=== PATIENT | male | born 1995 | race Hispanic/Latino ===

== ENCOUNTER 2018-01-06 07:08 | Day surgery (SDC) | payer BC ==
[2018-01-06] MEDS ORDERED: NACL 0.9% 500 ML 500 ML IV SCH (08:00)
[2018-01-06] MEDS ORDERED: ADRENALIN ONE (08:11)
[2018-01-06] MEDS ORDERED: ATROPINE 0.1% (CARDIAC) ONE (08:11)
[2018-01-06] MEDS: NITROSTAT SL ONE ×2 (08:54→09:00)
--- NOTE | 2018-01-06 09:28 | Short Stay Summary ---
Short Stay Documentation Date of service: 01/06/18 - History H&P: obtained from office - Allergies and Medications Current Medications: Allergies No Known Allergies Allergy (Verified 01/06/18 07:54) Home Medications Medication Instructions Recorded Confirmed Last Taken Type Triamter/Hctz 37.5-25 mg 25 - 37.5 mg PO DAILY 01/06/18 01/06/18 01/05/18 History [Maxzide-25] 37.5mg amLODIPine [Norvasc] 10 mg PO DAILY 01/06/18 01/06/18 01/05/18 History 2330 Active Medications Sodium Chloride (Nacl 0.9% 500 Ml) 500 mls @ 50 mls/hr IV DIRECT MATTHIAS - Physical exam General appearance: no acute distress Integumentary: no rash HEENT: Atraumatic Lungs: Clear to auscultation Breasts: deferred Heart: Regular rate Gastrointestinal: normal Male Genitourinary: deferred Female Genitourinary: deferred Rectal Exam: deferred Extremities: no ischemia Neurological: Normal gait - Brief post op/procedure progress note Date of procedure: 01/06/18 Pre-op diagnosis: Syncope Post-op diagnosis: same Procedure: TTT Anesthesia: none Findings: See report Surgeon: PERLA MARQUES Estimated blood loss: none Pathology: none Condition: stable - Hospital course Hospital course: Uneventful - Disposition Condition at discharge: Good Disposition: DC-01 TO HOME OR SELFCARE Short Stay Discharge Plan Activity: advance as tolerated Weight Bearing Status: Weight Bear as Tolerated Diet: low salt Follow up with: PERLA MARQUES MD [Primary Care Provider] - 7 Days
[2018-01-06 09:58] VITALS: BP 121/72
--- NOTE | 2018-01-06 23:13 | Procedure Note ---
TILT TABLE TEST INDICATION: Syncope. ORDERING PHYSICIAN: Dr. Zuly Childs DESCRIPTION OF PROCEDURE: After obtaining written consent, the patient was brought to the [facility] area. The patient was secured on the tilt table test. The patient's blood pressure prior to tilting was 121/73 with a heart rate of 69 beats per minute. The patient was tilted to 85 degrees from horizontal. His blood pressure immediately after tilting was 121/81 with a heart rate of 77 beats per minute. The patient was kept in the upright position for 10 minutes. Blood pressure at the end of the 10 minutes was ____/85 with a heart rate of 70 beats per minute. The patient was given 0.4 mg of sublingual nitroglycerin. After nitroglycerin, the highest recorded heart rate was 144, sinus tachycardia and the lowest recorded blood pressure was 122/71. No arrhythmias were detected except for occasional interpolated PVCs. No syncope was noted. The patient reported feeling dizzy and clammy. However, no loss of consciousness. IMPRESSION: Negative tilt table test with no evidence of vasodepressor or cardioinhibitory response. Occasional interpolated PVCs noted while on telemetry. RECOMMENDATION: 1. Continue current management. 2. A 7-day event monitor. JOB# [id number] [facility]
== END 2018-01-06 10:18 | disposition home or self-care (01) ==
LOC: CATHLABREC 07:08
PROVIDERS: ATTEND Internal Medicine
DX: R55 Syncope and collapse (principal); Z79.899 Other long term (current) drug therapy
CPT/HCPCS: 36415; 83036; 93660; J7040; J0171; J0461